=== PATIENT | male | born 1970 | race Caucasian/White ===

== ENCOUNTER 2021-09-09 13:53 | Emergency (ER) | payer SELFPAY ==
--- NOTE | 2021-09-09 14:06 | ECG_ITS ---
Measurements Intervals [place] Rate: 81 P: 81 TX: 135 QRS: -36 QRSD: 97 T: 48 QT: 336 QTc: 391 Interpretive Statements SINUS RHYTHM WITH SINUS ARRHYTHMIA POSSIBLE RIGHT ATRIAL ENLARGEMENT [0.25mV P WAVE] POSSIBLE LEFT ATRIAL ENLARGEMENT [-0.1mV P WAVE IN V1/V2] LEFT AXIS DEVIATION [QRS AXIS < -30] INCOMPLETE RIGHT BUNDLE BRANCH BLOCK [90+ ms QRS DURATION, TERMINAL R IN V1/V2, 40+ ms S IN I/aVL/V4/V5/V6] NO PREVIOUS ECG AVAILABLE FOR COMPARISON Electronically Signed On 09-09-2021 15:53:26 [employer] by Tony Almazan M.D.
[2021-09-09 14:07] VITALS: BP 139/85; PULSE 89; RESP 16; TEMP 36.6; O2SAT 99
--- NOTE | 2021-09-09 15:37 | PC.NURSE ---
Patient called for xray by [facility] twice with no response. Presumed to have left without being seen.
--- NOTE | 2021-09-09 16:19 | ED_ITS ---
HPI - Chest Pain General Chief Complaint: Chest Pain Stated Complaint: Chest Tightness and Left Arm Pain Time Seen by Provider: 09/09/21 16:18 Related Data Allergies Allergy/AdvReac Type Severity Reaction Status Date / Time No Known Drug Allergies Allergy Mild Verified 08/02/12 14:42 atorvastatin Allergy Unknown aching, Verified 07/16/17 21:20 irritable, insomnia Penicillins Allergy Unknown Not sure. Verified 07/16/17 21:20 [facility] Family History Family History (Updated 06/09/18 @ 09:54 by DOCTOR UNKNOWN) Father Hypertension Family history of cardiovascular disease Cerebrovascular accident Mother Hypertension Social History Social History Smoking status: Current every day smoker Alcohol intake: current Course Vital Signs Vital signs: Vital Signs Temperature 36.6 C 09/09/21 14:07 Pulse Rate 89 09/09/21 14:07 Respiratory Rate 16 09/09/21 14:07 Blood Pressure 139/85 09/09/21 14:07 Pulse Oximetry 99 09/09/21 14:07 Temperature 36.6 C 09/09/21 14:07 Pulse Rate 89 09/09/21 14:07 Respiratory Rate 16 09/09/21 14:07 Blood Pressure 139/85 09/09/21 14:07 Pulse Oximetry 99 09/09/21 14:07 Discharge Plan Discharge Patient Disposition: Left Without Being Sn Triaged Follow-up/Referrals: Parminder Sanon MD [Primary Care Provider] -
== END 2021-09-09 16:44 | disposition left against medical advice (07) ==
LOC: ANHED 16:41
PROVIDERS: PCP Family Medicine
DX: R07.9 Chest pain, unspecified (principal)
CPT/HCPCS: 93005; 99199